=== PATIENT | female | born 1990 | race Caucasian/White ===

== ENCOUNTER 2023-09-09 06:06 | Inpatient (IN) | payer BC, SELFPAY ==
[2023-09-09] VITALS (30 sets, daily range): BP systolic 110–144; BP diastolic 59–94; PULSE 89–113; RESP 17–18; TEMP 36.4–37.6; O2SAT 97–100; BMI 45.6
[2023-09-09] MEDS: SODIUM CHLORIDE 0.9 % (FLUSH) 10 ML SYRINGE IVF (07:11)
[2023-09-09] MEDS: LACTATED RINGERS 1000 ML 1,000 ML 125 ML IV ×2 (08:03→15:27)
[2023-09-09] MEDS: OXYTOCIN 30 unit/500 ML in NS 30 UNIT/500 ML BAG IVPB (08:04)
[2023-09-09 09:02] LABS: Basophils Absolute Auto 0.01 K/uL (0.00-0.30); Basophils Percent Auto 0.1 % (0.0-3.0); Eosinophils Absolute Auto 0.04 K/uL (0.00-0.50); Eosinophils Percent Auto 0.5 % (0.0-7.0); Hematocrit 35.7 % (33.0-51.0); Immature Granulocytes Abs Auto 0.01 K/uL (0.00-0.30); Immature Granulocytes Pct Auto 0.1 %; Lymphocytes Percent Auto 23.1 % (20-44); Mean Corpuscular HGB Conc 34 gm/dL (32-36); Mean Corpuscular Hemoglobin 30 pg (26-34); Mean Corpuscular Volume 90 fL (80-100); Monocytes Percent Auto 5.4 % (0.0-11.0); Neutrophils Absolute Auto 6.11 K/uL (1.7-7.0); Neutrophils Percent Auto 70.8 % (42.0-72.0); Platelet Count* 210 K/uL (140-440); RDW Coefficient of Variation % 14.4 % (11.5-15.5); Red Blood Count 3.98 m/uL (4.00-5.20); White Blood Count* 8.64 K/uL (4.50-11.00)
[2023-09-09 09:04] LABS: Slide Review Reflex No
--- NOTE | 2023-09-09 12:16 | P.OBHP_ITS ---
OB - H&P: HPI Labor/Induction History of Present Illness Date Seen: 09/09/23 Chief Complaint: The patient is a 32 year old 3 para 1011 at 39 weeks gestation by LMP and confirmed with 7 week US, who presents for IOL for maternal obesity and suspected LGA . Chief complaint: maternity Narrative: Greta Zamora is a 32 year old at 39 weeks by LMP here for IOl for maternal obesity and suspected LGA . EFW at 34 weeks 2727g (79%). She reports no regular contractions or LOF. has otherwise been uncomplicated and she is GBS negative. History of Present Dating criteria: based on LMP care: good care Ultrasounds: normal 1st trimester US and normal mid trimester US Medical complications: none Labs Blood type: A (-) negative Rubella: immune RPR/VDLR: nonreactive GBS status: negative HBsAG: negative Review of Systems Status of ROS: Reports: 10 or more systems reviewed and unremarkable except as noted in History and below Meds Home Medications and Allergies Home Medications Medication Instructions Recorded Confirmed Type sertraline 50 mg tablet 50 mg PO QDAY 04/02/22 09/09/23 History [id number]-urt-Ov-FA 1 mg 1 tab PO DAILY pregancy 09/09/23 09/09/23 History tablet Allergies Allergy/AdvReac Type Severity Reaction Status Date / Time No Known Drug Allergies Allergy Verified 09/09/23 08:19 OB - H&P: Exam Physical Exam: Vital signs: Temp Pulse Resp BP Pulse Ox 97.9 F 95 18 126/79 97 09/09/23 06:41 09/09/23 09:08 09/09/23 06:41 09/09/23 09:08 09/09/23 06:41 Constitutional: Constitutional: no acute distress Routine HEENT Exam: Head: Present atraumatic and normal inspection Eye: P resent EOMI and PERRL ENT: Present mucous membranes moist Routine Neck Exam: Neck: Present full ROM Routine Respiratory Exam: Respiratory: Present CTA bilaterally Routine Cardiovascular Exam: Cardiovascular: RRR Routine Exam: Perineum Description: Normal Detailed Labor and Delivery Exam: Patient Gravid: Yes Dilation (cm): 4 Effacement (%): 80 Cervix position: mid Consistency: medium Contraction frequency (min): 3 Contraction intensity: Mild Fetus (Single): Station: -2 Amniotic Membrane Status: AROM Amniotic Membrane Fluid Description: Clear Heart Rate Baseline: 150 Monitor Accelerations: Present Monitor Decelerations: None Dump Grader Variability: Moderate (6-25) Routine Back/Spine/Pelvis Exam: Back/Spine: full ROM Routine Skin Exam: Present intact Routine Neurological Exam: Present alert, oriented X3 and CN II-XII intact Routine Psychiatric Exam: Present normal affect and normal thought process OB - Results Labs Labs: Short CBC 09/09/23 Range/Units 08:53 WBC 8.64 (4.50-11.00) K/uL Hgb 12.0 (12.0-16.0) gm/dL Hct 35.7 (33.0-51.0) % Plt Count 210 (140-440) K/uL OB - Problem Based A/P Additional Plan (1) Term : Status: Acute (2) Maternal obesity syndrome in third trimester: Status: Acute Delivery/Labor/Induction Plan Plan: induction Induction method: AROM
--- NOTE | 2023-09-09 16:49 | P.ANBPRC_ITS ---
[facility] Medical History Miscarriage ?O03.9 - Complete or unspecified spontaneous without complication (ICD-10) Otalgia ?H92.09 - Otalgia, unspecified ear (ICD-10) Surgical History (Updated 09/09/23 @ 12:20 by Crystal Lazaro MD) Hx of LASIK ?Z98.890 - Other specified postprocedural states (ICD-10) Social History What is your current living situation?: I presently have a place to live Problems where you live: no known problems In the past 12 months, utilities in danger of being shut off: no In past 12 months, lack of transportation kept you from medical appts, meetings, work, or getting things needed for daily living: no In the past 12 mos, have been you worried that your food would run out before you had money to buy more?: never true In the past 12 mos, the food you bought just didn't last and you didn't have money to buy more?: never true Smoking Status: Never smoker How often does anyone, including family, friends and others, physically hurt you : never How often does anyone, including family, friends and others, insult or talk down to you: never How often does anyone, including family, friends and others, threaten you with harm: never How often does anyone, including family, friends and others, scream or curse at you: never Meds Home Medications and Allergies Home Medications Medication Instructions Recorded Confirmed Type sertraline 50 mg tablet 50 mg PO QDAY 04/02/22 09/09/23 History xejkujxs-mib-Bg-FA 1 mg 1 tab PO DAILY pregancy 09/09/23 09/09/23 H istory tablet Allergies Allergy/AdvReac Type Severity Reaction Status Date / Time No Known Drug Allergies Allergy Verified 09/09/23 08:19 Results Labs Labs: Laboratory Results - last 24 hr 09/09/23 08:53 WBC 8.64 RBC 3.98 L Hgb 12.0 Hct 35.7 MCV 90 MCH 30 MCHC 34 RDW Coeff of Jay 14.4 Plt Count 210 Neut % (Auto) 70.8 Lymph % (Auto) 23.1 [place] % (Auto) 5.4 Eos % (Auto) 0.5 Baso % (Auto) 0.1 Neut # (Auto) 6.11 Lymph # (Auto) 2.00 [place] # (Auto) 0.50 Eos # (Auto) 0.04 Baso # (Auto) 0.01 Abs Immat Gran (auto) 0.01 Imm/Tot Granulo (auto) 0.1 Vital Signs Vital Signs: Last Vital Signs Temp 97.6 F 09/09/23 14:14 Pulse 103 H 09/09/23 16:46 Resp 17 09/09/23 14:14 BP 129/65 09/09/23 16:46 Pulse Ox 100 09/09/23 16:39 Weight: 131.995 kg Height: 170.18 cm Anesthesia Procedures Epidural Insertion Patient Location: OB Start Time: 16:05 Stop Time: 16:55 Start Date: 09/09/23 Stop Date: 09/09/23 Reason for Block: primary anesthetic Patient Position: sitting Performed By: Herb Lopez Preanesthetic Checklist: IV checked, risks and benefits discussed, surgical consent, monitors and equipment checked, pre-op evaluation, timeout performed and anesthesia consent Prep: chlorhexidine gluconate Monitoring: blood pressure monitoring, vehicle monitor technician, continuous pulse oximetry and heart rate Approach: midline Vertebral Space: lumbar (1-5) Needle Type: Tuohy needle Injection Technique: continuous catheter (catheter) Needle gauge: 17 Needle Length (cm): 10 cm Needle Insertion Depth (cm): 8 Catheter Gauge: 19 Catheter Type: multi-orifice Catheter at skin depth (cm): 14 Test Dose Result: negative and lidocaine 1.5% with epinephrine 1 to 200,000
[2023-09-09] MEDS: ROPIVACAINE 0.2% 100 ml 100 ML 12 MG EPIDURAL (16:52)
[2023-09-09] MEDS: LIDOCAINE 2% (PF) 5 ML VIAL EPIDURAL (16:53)
--- NOTE | 2023-09-09 17:49 | W.PM.VAGDEL1 ---
Procedure Delivery date: 09/09/23 Procedure Done: Global Delivery augmentation: rupture of membranes Delivery monitor: external FHT and external uterine Route of delivery: Laceration description: Perineal - 2nd Degree Delivery repair: Vicryl Estimated blood loss (mL): 50 Anesthesia type: Epidural Disposition: floor Narrative: The patient is a 32 year-old admitted on 09/09/2023 at 39 Weeks, 0 Days gestation for IOL for maternal obesity.? Cervical exam on admission was 3 cm/80 % effaced/-2 station with membranes intact in vertex presentation.? Contractions were absent.? heart rate demonstrated baseline 150 bpm with moderate variability, + accelerations, - decelerations; a category 1 tracing.?Pitocin was started per protocol at 0800. AROM occurred at 1205 with clear fluid. ? Labor Analgesia:? epidural ? Pitocin:? yes ? Labor onset:? 1401 ? Complete:? 1657 ? Pushing:? 1703 ? heart tones during second stage were category 1. ? At 1720 a viable male infant delivered in vertex OA presentation over intact perineum via spontaneous vaginal delivery.? was placed on maternal abdomen.? Cord was clamped and cut after a 30-60 second delay.? Nose and mouth were bulb suctioned.? Infant weight pending.? 6 at 1 minute and 7 at 5 minutes and 9 at 10 minutes.? Shoulder dystocia: no.? Nuchal cord: no. ? Placenta delivered spontaneously and complete at 1724 with a 3 vessel cord. ? Mother and infant were stable after delivery. ? Lacerations:? 2nd degree perineal, repaired with 3-0 vicryl suture. ? Blood loss: 50 mL. Blood loss measurement type: QBL ? Sponge and needles counts are correct. Infant Infant Gender: Male presentation: vertex Placental Delivery Description: Spontaneous Cord Description: 3 Vessels
[2023-09-10 00:38] VITALS: BP 129/84; PULSE 90; RESP 18; TEMP 36.6; O2SAT 96
[2023-09-10 04:15] VITALS: BP 123/83; PULSE 98; RESP 18; TEMP 36.7; O2SAT 97
[2023-09-10 07:47] VITALS: BP 123/82; PULSE 95; RESP 12; TEMP 36.4
--- NOTE | 2023-09-10 07:49 | P.OBPN_ITS ---
OB - PN:Subj Subjective Date Seen: 09/10/23 Patient comments OB post-: no complaints [place] status: OB - PN: Obj Exam Physical Exam: Vital signs: Temp Pulse Resp BP Pulse Ox O2 Del Method 98.0 F 98 18 123/83 97 Room Air 09/10/23 04:15 09/10/23 04:15 09/10/23 04:15 09/10/23 04:15 09/10/23 04:15 09/10/23 04:15 Constitutional: Constitutional: no acute distress Routine Abdominal Exam: Fundus: Present firm Comments: Mildly tender to palpation Routine Extremities Exam: Extremities: Absent calf tenderness or pedal edema OB - PN: Obj Data Labs Labs: Laboratory Results - last 24 hr 09/09/23 08:53 WBC 8.64 RBC 3.98 L Hgb 12.0 Hct 35.7 MCV 90 MCH 30 MCHC 34 RDW Coeff of Jay 14.4 Plt Count 210 Neut % (Auto) 70.8 Lymph % (Auto) 23.1 [place] % (Auto) 5.4 Eos % (Auto) 0.5 Baso % (Auto) 0.1 Neut # (Auto) 6.11 Lymph # (Auto) 2.00 [place] # (Auto) 0.50 Eos # (Auto) 0.04 Baso # (Auto) 0.01 Abs Immat Gran (auto) 0.01 Imm/Tot Granulo (auto) 0.1 OB - PN: A/P Delivery Assessment and Plan (1) Term : Status: Inactive (2) Maternal obesity syndrome in third trimester: Status: Resolved Plan Plan: routine care
[2023-09-10 08:27] LABS: Hemoglobin* 12.3 gm/dL (12.0-16.0)
[2023-09-10] MEDS: DOCUSATE SODIUM 100 MG CAPSULE PO (08:44)
[2023-09-10 11:41] VITALS: BP 119/81; PULSE 95; RESP 12; TEMP 36.9
[2023-09-10 15:53] VITALS: BP 116/79; PULSE 95; RESP 16; TEMP 36.6
[2023-09-10 17:58] LABS: Rapid Plasma Reagin (RPR) Non Reactive (Non Reactive)
[2023-09-11 01:07] VITALS: BP 135/84; PULSE 87; RESP 18; TEMP 36.9
--- NOTE | 2023-09-11 07:44 | P.DS_ITS ---
DS: Providers Provider Time Seen by Provider: 07:44 Date Seen: 09/11/23 Date of admission: 09/09/23 06:06 Primary care physician: Crystal Lazaro MD Admitting Clinician: Crystal Lazaro MD Attending Physician on discharge: Hannah Swanson MD Date of Discharge: 09/11/23 DS: Diagnosis Discharge Diagnosis (1) Vaginal delivery: Status: Acute (2) Maternal obesity syndrome in third trimester: Status: Resolved Exam Const: Vital Signs, click to edit/add: Vital Signs - 24 hr 09/10/23 07:47 09/10/23 11:41 09/10/23 15:53 Temperature 97.5 F L 98.4 F 97.9 F Pulse Rate [Blood Pressure Cuff] 95 95 95 Respiratory Rate 12 12 16 Blood Pressure [Le ft Arm] 123/82 119/81 116/79 Oxygen Delivery Me thod 09/11/23 01:07 Temperature 98.5 F Pulse Rate [Blood Pressure Cuff] 87 Respiratory Rate 18 Blood Pressure [Le ft Arm] 135/84 Oxygen Delivery Me thod Room Air Common normals: no apparent distress General appearance: cooperative and comfortable HENMT: Common normals: normocephalic Head and scalp: normocephalic Neck & C-Spine: Common normals: full ROM Resp: Common normals: normal respiratory effort and no retractions Cardio: Common normals: regular rate, regular rhythm, S1 normal heart sound and S2 normal heart sound Rate: regular rate Rhythm: regular rhythm Heart sounds: S1 normal and S2 normal; no murmurs : Uterus: U/2 and firm Extremity: Common normals: no calf tenderness Other: mild edema in lower extremities bilaterally OB - DS: Summary Hospital Course Hospital Course: The patient is a 32 year old G 3 P 2 at 39.0 weeks gestation that was admitted to the Center on 09/09/23 for IOL for BMI>45. She had an uncomplicated vaginal delivery. She delivered a viable male infant. She is breast feeding. the patient has done well. Peripartum Data delivery method: Vaginal complications: none [place] Infant Gender: Male Discharge Plan: Home Status at Discharge Functional status at discharge: independent ambulation Overall status at discharge: patient is back to baseline Time Spent with Patient Time attestation: Total time spent providing and/or coordinating discharge services: Time spent: Less than 30 minutes Discharge Plan Discharge Disposition: Home, Self-Care Date of Admission: 09/09/23 06:06 Attending Provider on Discharge: Hannah Swanson Primary Care Provider: Crystal Lazaro Condition: Stable Anticipated Discharge Date/Time: 09/11/23 07:39 Discharge Medications: Continued sertraline 50 mg tablet 50 mg PO QDAY vrcvkmyy-fam-Wp-FA 1 mg tablet 1 tab PO DAILY Discharge Orders: Discharge Order (Routine); Ordered 09/11/23 Ordered By: Hannah Swanson Patient Education: OB Vaginal/Breast Feeding Activity Level: Activity as Tolerated Activity Detail: Pelvic rest x 6 weeks, nothing in the vagina Discharge Diet: Regular Follow Up Appointments: Crystal Lazaro MD [Primary Care Provider] - Forms: [employer] Info Instructions Discharge Comments: Please follow up with Dr. Lazaro for visit at 6 weeks
[2023-09-11 08:33] VITALS: BP 112/77; PULSE 70; RESP 16; TEMP 36.4; O2SAT 97
--- NOTE | 2023-09-11 08:47 | PM.ANPOST ---
Post Anesthesia Note Post Anesthesia Note Patient seen: Inpatient Respiratory Status: adequate Cardiovascular Status: adequate Mental Status: baseline Pain: adequate Temp: baseline Anesthetic awareness: N/A Complications: none Follow care: none
== END 2023-09-11 10:45 | disposition home or self-care (01) | DRG 560 ==
PROVIDERS: Admitting Provider Family Medicine; PCP Family Medicine; Visit Provider Family Medicine
DX: O99.214 Obesity complicating childbirth (principal); O70.1 Second degree perineal laceration during delivery; O36.63X0 Maternal care for excessive fetal growth, third trimester, not applicable or unspecified; Z3A.39 39 weeks gestation of pregnancy; Z37.0 Single live birth
CPT/HCPCS: 01967; 36415; 85018; 85025; 85461; 86592; A9270; J2371; J2791; J2795; J7120